=== PATIENT | male | born 1935 ===

== ENCOUNTER 2021-04-02 06:57 | Day surgery (SDC) | payer OTHER ==
[~2021-04-02 06:57] MED LIST: AVODART0.5 MG PO; GLIMEPIRIDE2 MG PO; JARDIANCE25 MG PO; LOSARTAN-HCTZ1 EAC1 PO; METOPROLOL SUC100 MG PO; SIMVAST PO; SYNTHROID100 MCG PO
[2021-04-02] MEDS ORDERED: TYLENOL ARTHRI650 MG PO (14:46)
[2021-04-02] MEDS ORDERED: MIRALAX17 GM PO (14:46)
[2021-04-02] MEDS ORDERED: ULTRAM50 MG PO (14:46)
== END 2021-04-02 18:20 | disposition home or self-care (01) ==
LOC: CIR.AMB 06:57 → ADM 08:45 → CIR.AMB 08:45
PROVIDERS: ATTEND Surgery
DX: K40.90 Unilateral inguinal hernia, without obstruction or gangrene, not specified as recurrent (principal); Z20.822 Contact with and (suspected) exposure to COVID-19